=== PATIENT | female | born 1955 | race Caucasian/White ===

== ENCOUNTER → 2017-05-11 | Outpatient (CLI) | payer OTHER | LOC: M.RAD 17:29 | DX: I80.3 Phlebitis and thrombophlebitis of lower extremities, unspecified (principal) ==

== ENCOUNTER → 2017-05-17 | Outpatient (CLI) | payer OTHER | LOC: M.ULTRA 15:46 | DX: M79.605 Pain in left leg (principal); M79.89 Other specified soft tissue disorders ==